=== PATIENT | male | born 1950 | race Caucasian/White ===

== ENCOUNTER 2018-03-14 19:17 | Emergency (ER) | payer MEDICARE, BC ==
[~2018-03-14] VITALS: Ht 177.8 cm; Wt 122.0 kg
[~2018-03-14 19:17] MED LIST: ASPIR-LOW81 MG PO; DILTIAZEM 24HR180 MG PO; FENOFIBRATE134 MG PO; LIPITOR20 MG PO; LOSARTAN POTAS100 MG PO; PLAVIX75 MG PO
[2018-03-14 20:29] LABS: BASOPHILS # (AUTO) 0.1 (0.0-0.1); BASOPHILS % 0.8 % (0.0-1.0); EOSINOPHILS # (AUTO) 0.2 (0.0-0.4); EOSINOPHILS % 1.7 % (0.0-6.0); HEMATOCRIT 51.5 % (38.2-49.6); HEMOGLOBIN 18.1 g/dL (14.0-18.0); LYMPHOCYTES # (AUTO) 1.6 (1.0-3.2); LYMPHOCYTES % 18.8 % (18.0-39.1); MEAN CORPUSCULAR HEMOGLOBIN 31.4 pg (28-32); MEAN CORPUSCULAR HGB CONC 35.1 g/dL (31-35); MEAN CORPUSCULAR VOLUME 89.3 fL (81-99); MONOCYTES # (AUTO) 0.7 (0.2-0.8); MONOCYTES % 7.9 % (4.4-11.3); NEUTROPHILS # (AUTO) 6.1 (2.1-6.9); NEUTROPHILS % 70.2 % (38.7-80.0); PLATELET COUNT 175 x10e3/uL (140-360); RED BLOOD COUNT 5.77 x10e6/uL (4.3-5.7); RED CELL DISTRIBUTION WIDTH 12.4 % (11.7-14.4)
[2018-03-14 20:49] LABS: ALANINE AMINOTRANSFERASE 40 IU/L (0-55); ALBUMIN 3.9 g/dL (3.5-5.0); ALBUMIN/GLOBULIN RATIO 1.1 (0.8-2.0); ALKALINE PHOSPHATASE 84 IU/L (40-150); ANION GAP 15.3 mmol/L (8-16); BLOOD UREA NITROGEN 16 mg/dL (7-26); BUN/CREATININE RATIO 14 (6-25); CALCIUM 10.3 mg/dL (8.4-10.2); CARBON DIOXIDE 26 mmol/L (22-29); CHLORIDE 101 mmol/L (98-107); CREATININE, SERUM 1.17 mg/dL (0.72-1.25); EST GLOMERULAR FILTRATION RATE > 60 ML/MIN (60-); GLUCOSE 161 mg/dL (74-118); POTASSIUM 5.3 mmol/L (3.5-5.1); SODIUM 137 mmol/L (136-145)
[2018-03-14 21:01] LABS: BILIRUBIN,URINE NEGATIVE (NEGATIVE); CLARITY,URINE CLEAR (CLEAR); COLOR,URINE YELLOW (YELLOW); KETONES,URINE NEGATIVE (NEGATIVE); LEUKOCYTE ESTERASE ,URINE NEGATIVE (NEGATIVE); NITRITE,URINE NEGATIVE (NEGATIVE); PROTEIN,URINE DIPSTICK NEGATIVE (NEGATIVE); URINE UROBILINOGEN 1 mg/dL (0.2 - 1)
[2018-03-14] MEDS ORDERED: CLOPIDOGREL75 MG PO (21:05)
[2018-03-14] MEDS ORDERED: ATORVASTATIN CA10 MG PO (21:05)
[2018-03-14] MEDS ORDERED: LOPRESSOR25 MG PO (21:05)
[2018-03-14] MEDS ORDERED: TRILIPIX135 MG PO (21:05)
[2018-03-14] MEDS ORDERED: CARTIA XT300 MG PO (21:05)
[2018-03-14 21:11] LABS: BACTERIA,URINE FEW /HPF; EPITHELIAL CELLS,URINE FEW /LPF; MUCUS,URINE MANY (RARE); WBC,URINE (MAN) 0-5 /HPF (0-5)
--- NOTE | 2018-03-14 21:13 | Diagnostic Imaging Report ---
EXAMINATION: CHEST 2 VIEWS INDICATION: \S\DIZZINESS \S\[id number] \S\2013 \S\Y COMPARISON: 08/19/2014 FINDINGS: PA and lateral views TUBES and LINES: None. LUNGS: Lungs are well inflated. Lungs are clear. There is no evidence of pneumonia or pulmonary edema. PLEURA: No pleural effusion or pneumothorax. HEART AND MEDIASTINUM: The cardiomediastinal silhouette is unremarkable. Unchanged mild right paratracheal thickening and focal calcification. BONES AND SOFT TISSUES: No acute osseous lesion. Soft tissues are unremarkable. UPPER ABDOMEN: No free air under the diaphragm. IMPRESSION: No acute thoracic abnormality. No change from prior exam. Signed by: Dr. Hernandez Painting MD on 03/14/2018 9:10 PM
[2018-03-14] MEDS ORDERED: SODIUM CHLORIDE 0.9% 1000ML 1,000 ML ONE (21:18)
[2018-03-14] MEDS: SODIUM CHLORIDE 0.9% 1000ML 1,000 ML IV ONE (21:30)
[2018-03-14 23:19] LABS: ANION GAP 13.5 mmol/L (8-16); BLOOD UREA NITROGEN 15 mg/dL (7-26); BUN/CREATININE RATIO 14 (6-25); CALCIUM 9.6 mg/dL (8.4-10.2); CARBON DIOXIDE 26 mmol/L (22-29); CHLORIDE 103 mmol/L (98-107); CREATININE, SERUM 1.11 mg/dL (0.72-1.25); EST GLOMERULAR FILTRATION RATE > 60 ML/MIN (60-); GLUCOSE 146 mg/dL (74-118); POTASSIUM 4.5 mmol/L (3.5-5.1); SODIUM 138 mmol/L (136-145)
[2018-03-14 23:27] VITALS: BP 143/72
== END 2018-03-14 23:39 | disposition home or self-care (01) ==
LOC: ER 19:17
DX: R42 Dizziness and giddiness (principal); E86.9 Volume depletion, unspecified; K52.9 Noninfective gastroenteritis and colitis, unspecified; R73.9 Hyperglycemia, unspecified; I10 Essential (primary) hypertension; I25.10 Atherosclerotic heart disease of native coronary artery without angina pectoris; E78.5 Hyperlipidemia, unspecified
CPT/HCPCS: 36415; 71046; 80048; 80053; 81001; 82948; 85025; 93005; 99284; J7030